=== PATIENT | male | born 1995 | race Caucasian/White ===

== ENCOUNTER 2017-02-13 21:05 | Emergency (ER) | payer BC ==
[~2017-02-13 21:05] MED LIST: NORCO1 TAB 10/3; NORCO1 TAB 10/3 PO; THROID
[2017-02-13] MEDS ORDERED: CENTRUM PO (21:18)
[2017-02-13] MEDS ORDERED: SYNTHROID PO (21:18)
[2017-02-13] MEDS ORDERED: PROAIR HFA8.5 GM INH (21:18)
== END 2017-02-13 22:47 | disposition home or self-care (01) ==
LOC: SED 21:05
DX: J45.901 Unspecified asthma with (acute) exacerbation (principal); Z79.899 Other long term (current) drug therapy
CPT/HCPCS: 94640; 99283